=== PATIENT | female | born 1945 | race African-American/Black ===

== ENCOUNTER 2024-01-09 01:27 | Inpatient (IN) | payer OTHER ==
[2024-01-09] VITALS (73 sets, daily range): BP systolic 80–168; BP diastolic 44–81; PULSE 48–92; RESP 12–29; TEMP 97.8–99.3; O2SAT 94–100
[~2024-01-09] VITALS: Ht 167.6 cm; Wt 72.0 kg
[~2024-01-09 01:27] MED LIST: GABA-1308 PO; GLIP5TAB21 PO; ISOS1TAB29 PO; METO25TA93 PO; NOR10T PO; OMEP20CA74 PO
[2024-01-09] MEDS: NITROGLYCERIN 50MG/250ML 250 ML IV ONE ×2 (01:52→08:34)
[2024-01-09 02:06] LABS: Hemoglobin 14.9 g/dL (12.2-16.2); Mean Corpuscular Hemoglobin 31.2 pg (28.0-32.0); Mean Corpuscular Hgb Conc. 32.3 g/dL (32.0-36.0); Mean Corpuscular Volume 96.5 fL (80.0-100.0); Red Blood Cells 4.77 10^6/uL (4.0-5.20); Red Cell Distribution Width 13.4 % (11.8-14.3); White Blood Cell 15.5 10^3/uL (4.4-10.8)
[2024-01-09 02:07] LABS: Basophils % (manual) 0 (0.0-2.0); Blast Cells 0; Metamyelocytes % 0; Promyelocytes % 0
[2024-01-09 02:11] LABS: Chloride 103 mmol/L (98-107); Potassium 3.9 mmol/L (3.5-5.1); Sodium 140 mmol/L (136-145)
[2024-01-09 02:12] LABS: Anion Gap 14 (5-15); Carbon Dioxide 23 mmol/L (20-30)
[2024-01-09 02:12] LABS: Base Excess -7.4 mmol/L (-2.0-2.0)
[2024-01-09 02:13] LABS: Calcium 10.3 mg/dL (8.7-10.4)
[2024-01-09 02:17] LABS: BUN/Creatinine Ratio 13.8 (10.0-20.0); Blood Urea Nitrogen 26 mg/dL (9-23); Glucose 323 mg/dL (74-106)
[2024-01-09 02:52] LABS: Band Neutrophils % (manual) 2; Eosinophils % (manual) 1 (0-7); Lymphocytes % (manual) 53 (10.0-50.0); Monocytes % (manual) 5 (0-12); Myelocytes % 1; Reactive Lymphocytes 1
[2024-01-09 02:53] LABS: Platelet Estimate Adequate; RBC Morphology Normal
[2024-01-09] MEDS: FUROSEMIDE 100 MG/10ML VIAL IV ONE (03:40)
[2024-01-09] MEDS ORDERED: DEXTROSE (50%) 50ML SYRG IV PRN ×2 (05:00→12:45)
[2024-01-09] MEDS ORDERED: IPRATROPIUM BROM 0.5 MG/2.5ML INH SOL NEB PRN (05:00)
[2024-01-09] MEDS ORDERED: MORPHINE SULFATE INJ 2 MG/ml SYRG IV PRN (05:00)
[2024-01-09] MEDS ORDERED: HYDROcodone-ACET 5/325MG TAB PO PRN (05:00)
[2024-01-09] MEDS ORDERED: NITROGLYCERIN 0.4 MG SL TAB SL PRN (05:00)
[2024-01-09] MEDS ORDERED: ALBUTEROL SULF 2.5 MG/0.5ML(0.5%) NEB SOLN NEB PRN (05:00)
[2024-01-09] MEDS ORDERED: DOCUSATE SOD 100 MG CAP PO PRN (05:00)
[2024-01-09] MEDS: cefTRIAXone 1GM/50ML D5W 50 ML IV ONE (05:35)
[2024-01-09] MEDS: SODIUM CHLOR 0.9% PF (SALINE LOCK) 10ML VIAL/SYR IV SCH (05:46)
[2024-01-09 06:03] LABS: Urine Bacteria MANY /hpf (None Seen); Urine Blood TRACE /uL (Negative); Urine Clarity Turbid (Clear); Urine Color Colorless (Yellow); Urine Hyaline Cast FEW /lpf (0 - 2); Urine Protein, UAD 3+ (Negative); Urine Urobilinogen Normal (Negative); Urine WBC 34 /hpf (0 - 5); Urine pH 6.5 (5.0-9.0)
[2024-01-09] MEDS: HEPARIN IN NS 1000Units/500mL 1,500 ML ONE (06:47)
[2024-01-09] MEDS: IODIXANOL 320MG/ML 100ML BTL IV ONE ×2 (06:47→07:44)
[2024-01-09] MEDS: IOHEXOL 350 MG/ML 100ML IJ ONE (06:47)
[2024-01-09] MEDS: LIDOCAINE 2%HCL (LOCAL ANESTH.) INJ 20ML MDV ONE (06:47)
[2024-01-09] MEDS: HEPARIN SODIUM (PORCINE) 5000 UNITS/ML 1ML VIAL IV ONE (06:49)
[2024-01-09] MEDS: HEPARIN SODIUM (PORCINE) 5000 UNITS/ML 1ML VIAL ONE (06:58)
[2024-01-09] MEDS: ANGIOMAX 250 MG VIAL IV ONE (06:58)
[2024-01-09] MEDS: VERAPAMIL 2.5MG/ML INJ 2ML VIAL IV ONE (06:59)
[2024-01-09] MEDS: MIDAZOLAM HCL 2MG/2ML 2ml VIAL (1mg/ml) ONE (06:59)
[2024-01-09] MEDS: SODIUM CHL 0.9% 50 ML ONE (06:59)
[2024-01-09] MEDS: fentaNYL CITRATE 100 MCG/2 ML VL ONE (07:00)
[2024-01-09 07:23] LABS: INR 1.05 (0.9-1.15); Partial Thromboplastin Time 23.9 SEC (24.5-34.5); Prothrombin Time 11.1 sec (9.3-11.8)
[2024-01-09] MEDS: methylPREDNISolone SOD SUCC 125 MG/2 ML VL ONE (07:25)
[2024-01-09] MEDS: diphenhdrAMINE HCL 50 MG/1 ML VL ONE (07:26)
[2024-01-09] MEDS: FAMOTIDINE (10MG/ML) 2ML VL IV ONE (07:26)
[2024-01-09] MEDS: hydrALAZINE HCL 20 MG/ML VL ONE (07:36)
[2024-01-09] MEDS ORDERED: HEPARIN DRIP/D5W 100UNITS/ML 250 ML IV SCH (08:00)
[2024-01-09 09:08] LABS: Chloride 106 mmol/L (98-107); Potassium 5.2 mmol/L (3.5-5.1); Sodium 139 mmol/L (136-145)
[2024-01-09 09:14] LABS: Glucose 277 mg/dL (74-106)
[2024-01-09 09:15] LABS: Blood Urea Nitrogen 25 mg/dL (9-23); LDL Cholesterol 96 mg/dL (< 100); Magnesium 1.5 mg/dL (1.6-2.6); Triglycerides 188 mg/dL (< 150)
[2024-01-09 09:17] LABS: Cholesterol 183 mg/dL (< 200); HDL Cholesterol 49 mg/dL (40-59)
[2024-01-09] MEDS: DOBUTamine 1000MCG/ML 250 ML IV SCH (09:45)
[2024-01-09] MEDS ORDERED: FUROSEMIDE 40 MG/4 ML VIAL IV SCH (10:00)
[2024-01-09] MEDS: NITROGLYCERIN 50MG/250ML 250 ML IV SCH (10:00)
[2024-01-09] MEDS: ASPirin 81 mg TAB PO SCH (10:12)
[2024-01-09] MEDS: CLOPIDOGREL BISULFATE 75 MG TAB PO SCH (10:13)
[2024-01-09] MEDS: ACCU-CHEK COMFORT CURVE STRIP VI SCH ×2 (11:28→16:53)
[2024-01-09] MEDS: InsuLIN REG 1unit/0.01ml Soln (100units/ml) SC SCH ×3 (11:29→22:43)
[2024-01-09 13:10] LABS: Anion Gap 10 (5-15); Carbon Dioxide 23 mmol/L (20-30)
[2024-01-09] MEDS ORDERED: ATOR20TA50 PO (14:35)
[2024-01-09] MEDS ORDERED: SERT-206 PO (14:35)
[2024-01-09] MEDS ORDERED: CLOP75TA28 PO (14:35)
[2024-01-09] MEDS ORDERED: ASPI-543 PO (14:35)
[2024-01-09] MEDS ORDERED: PANT40TA2 PO (14:35)
[2024-01-09] MEDS: ONDANSETRON HCL 4 MG/2 ML VIAL IV PRN (15:16)
[2024-01-09] MEDS: PANTOPRAZOLE 40 MG/10 ML VIAL INJ IV SCH (16:09)
[2024-01-09] MEDS: FUROSEMIDE 20 MG/2 ML VIAL IV SCH (17:50)
[2024-01-09] MEDS: ATORVASTATIN 20 MG TAB PO SCH (22:36)
[2024-01-10] VITALS (68 sets, daily range): BP systolic 114–156; BP diastolic 45–76; PULSE 53–78; RESP 10–27; TEMP 97.6–99.3; O2SAT 87–100
[2024-01-10 04:05] LABS: Basophils # (auto) 0 10 ^3/uL (0-0.2); Basophils % (auto) 0.3 % (0.0-2.0); Eosinophils # (auto) 0 10 ^3/uL (0-0.8); Eosinophils % (auto) 0.1 % (0.0-7.0); Hematocrit 36.9 % (36.0-46.0); Hemoglobin 12.2 g/dL (12.2-16.2); Lymphocytes # (auto) 1.5 10 ^3/uL (0.4-5.4); Lymphocytes % (auto) 14.2 % (10.0-50.0); Mean Corpuscular Hgb Conc. 33.1 g/dL (32.0-36.0); Mean Corpuscular Volume 93.6 fL (80.0-100.0); Monocytes # (auto) 0.8 10 ^3/uL (0-1.3); Monocytes % (auto) 7.9 % (0.0-12.0); Neutrophils # (auto) 8.1 10 ^3/uL (1.6-8.6); Neutrophils % (auto) 77.5 % (37.0-80.0); Red Blood Cells 3.95 10^6/uL (4.0-5.20); Red Cell Distribution Width 13.1 % (11.8-14.3); White Blood Cell 10.5 10^3/uL (4.4-10.8)
[2024-01-10 04:31] LABS: Alanine Aminotransferase 22 U/L (7-40); Albumin 3.9 g/dL (3.2-4.8); Alkaline Phosphatase 97 U/L (46-116); Anion Gap 8 (5-15); Aspartate Aminotransferase 41 U/L (13-40); BUN/Creatinine Ratio 19.1 (10.0-20.0); Calcium 10.3 mg/dL (8.7-10.4); Carbon Dioxide 28 mmol/L (20-30); Chloride 105 mmol/L (98-107); Glucose 125 mg/dL (74-106); Magnesium 1.5 mg/dL (1.6-2.6); Potassium 4.5 mmol/L (3.5-5.1); Sodium 141 mmol/L (136-145)
[2024-01-10 04:32] LABS: Bilirubin, Total 0.5 mg/dL (0.2-1.0); Total Protein 7.3 g/dL (5.7-8.2)
[2024-01-10 04:35] LABS: Blood Urea Nitrogen 41 mg/dL (9-23)
[2024-01-10] MEDS: cefTRIAXone 1GM/50ML D5W 50 ML IV SCH (05:02)
[2024-01-10 06:12] LABS: Large Platelets FEW; Platelet Estimate Decreased
[2024-01-10] MEDS: ISOSORBIDE MONONITRATE ER 60 MG TAB PO ONE (12:41)
[2024-01-10] MEDS: METOPROLOL TARTRATE 25 MG TAB PO SCH (12:42)
[2024-01-10] MEDS: METOPROLOL TARTRATE 25 MG TAB PO ONE (12:43)
[2024-01-10] MEDS: MAGNESIUM OXIDE 400 MG TAB PO ONE (14:50)
[2024-01-10] MEDS ORDERED: MET25T PO (16:38)
[2024-01-10] MEDS ORDERED: FURO20TA3 PO (16:38)
[2024-01-10 19:55] LABS: Urine Bacteria None Seen /hpf (None Seen)
[2024-01-10 20:22] LABS: Urine Blood Negative /uL (Negative); Urine Clarity Clear (Clear); Urine Color Light-Yellow (Yellow); Urine Protein, UAD TRACE (Negative); Urine Specific Gravity 1.027 (1.001-1.035); Urine Urobilinogen Normal (Negative); Urine WBC 3 /hpf (0 - 5); Urine pH 5.5 (5.0-9.0)
[2024-01-10] MEDS: INSULIN LANTUS (GLARGINE) 1 /0.01ml (100units/ml) SC SCH (21:13)
[2024-01-11] VITALS (30 sets, daily range): BP systolic 120–183; BP diastolic 48–81; PULSE 50–94; RESP 10–22; TEMP 98.7–98.8; O2SAT 91–98
[2024-01-11] MEDS: ACETAMINOPHEN 325 MG TAB PO PRN (01:45)
[2024-01-11 03:56] LABS: Basophils # (auto) 0 10 ^3/uL (0-0.2); Basophils % (auto) 0.4 % (0.0-2.0); Eosinophils # (auto) 0.1 10 ^3/uL (0-0.8); Eosinophils % (auto) 1.5 % (0.0-7.0); Hematocrit 37.1 % (36.0-46.0); Hemoglobin 12.4 g/dL (12.2-16.2); Lymphocytes # (auto) 2.6 10 ^3/uL (0.4-5.4); Lymphocytes % (auto) 26.8 % (10.0-50.0); Mean Corpuscular Hemoglobin 31.6 pg (28.0-32.0); Mean Corpuscular Hgb Conc. 33.4 g/dL (32.0-36.0); Mean Corpuscular Volume 94.7 fL (80.0-100.0); Monocytes # (auto) 0.6 10 ^3/uL (0-1.3); Monocytes % (auto) 6.4 % (0.0-12.0); Neutrophils # (auto) 6.2 10 ^3/uL (1.6-8.6); Neutrophils % (auto) 64.9 % (37.0-80.0); Nucleated Red Blood Cells % 0.1 %; Red Blood Cells 3.91 10^6/uL (4.0-5.20); White Blood Cell 9.6 10^3/uL (4.4-10.8)
[2024-01-11 04:02] LABS: Chloride 105 mmol/L (98-107); Potassium 4.5 mmol/L (3.5-5.1); Sodium 140 mmol/L (136-145)
[2024-01-11 04:03] LABS: Anion Gap 6 (5-15); Calcium 9.9 mg/dL (8.7-10.4); Carbon Dioxide 29 mmol/L (20-30)
[2024-01-11 04:08] LABS: BUN/Creatinine Ratio 17.9 (10.0-20.0); Blood Urea Nitrogen 35 mg/dL (9-23); Glucose 138 mg/dL (74-106)
[2024-01-11] MEDS: hydrALAZINE HCL 20 MG/ML VL IV PRN (04:10)
[2024-01-11] MEDS ORDERED: LACTULOSE 20Gm/30ML SOLN PO ONE (10:00)
[2024-01-11] MEDS: MAGNESIUM OXIDE 400 MG TAB PO ONE (10:12)
[2024-01-11] MEDS: FUROSEMIDE 20 MG/2 ML VIAL IV SCH (10:13)
[2024-01-11] MEDS: PANTOPRAZOLE 40 MG TAB PO SCH (10:14)
[2024-01-11] MEDS: ISOSORBIDE MONONITRATE ER 60 MG TAB PO SCH (10:14)
[2024-01-11] MEDS: amLODIPine BESYLATE 5 MG TAB PO ONE (13:05)
[2024-01-12] VITALS: PULSE 75; RESP 13; O2SAT 96
[2024-01-12] MEDS ORDERED: amLODIPine BESYLATE 5 MG TAB PO SCH (10:00)
== END 2024-01-12 00:02 | disposition short-term general hospital (02) | DRG 280 ==
LOC: ER 01:27 → EDAGE 01:27 → OVERFLOW 05:25 → ICU WEST 09:30
PROVIDERS: ADMIT Nurse Practitioner Family; ATTEND Internal Medicine
PROC: 4A023N7 Measurement of Cardiac Sampling and Pressure, Left Heart, Percutaneous Approach (ICD-10-PCS; principal; 2024-01-09)
PROC: B211YZZ Fluoroscopy of Multiple Coronary Arteries using Other Contrast (ICD-10-PCS; 2024-01-09)
PROC: B215YZZ Fluoroscopy of Left Heart using Other Contrast (ICD-10-PCS; 2024-01-09)
PROC: B218YZZ Fluoroscopy of Left Internal Mammary Bypass Graft using Other Contrast (ICD-10-PCS; 2024-01-09)
PROC: B212YZZ Fluoroscopy of Single Coronary Artery Bypass Graft using Other Contrast (ICD-10-PCS; 2024-01-09)
PROC: 5A09357 Assistance with Respiratory Ventilation, Less than 24 Consecutive Hours, Continuous Positive Airway Pressure (ICD-10-PCS; 2024-01-09)
DX: I21.4 Non-ST elevation (NSTEMI) myocardial infarction (principal); I50.23 Acute on chronic systolic (congestive) heart failure; J96.01 Acute respiratory failure with hypoxia; N17.0 Acute kidney failure with tubular necrosis; I13.0 Hypertensive heart and chronic kidney disease with heart failure and stage 1 through stage 4 chronic kidney disease, or unspecified chronic kidney disease; N18.4 Chronic kidney disease, stage 4 (severe); I16.1 Hypertensive emergency; N39.0 Urinary tract infection, site not specified; R65.10 Systemic inflammatory response syndrome (SIRS) of non-infectious origin without acute organ dysfunction; I25.10 Atherosclerotic heart disease of native coronary artery without angina pectoris; I44.7 Left bundle-branch block, unspecified; J45.909 Unspecified asthma, uncomplicated; E11.22 Type 2 diabetes mellitus with diabetic chronic kidney disease; E11.65 Type 2 diabetes mellitus with hyperglycemia; F32.A Depression, unspecified; E78.5 Hyperlipidemia, unspecified; E11.40 Type 2 diabetes mellitus with diabetic neuropathy, unspecified; E83.42 Hypomagnesemia; Z95.1 Presence of aortocoronary bypass graft; Z95.5 Presence of coronary angioplasty implant and graft; Z82.49 Family history of ischemic heart disease and other diseases of the circulatory system; Z91.041 Radiographic dye allergy status; Z83.3 Family history of diabetes mellitus
CPT/HCPCS: 36415; 36600; 71045; 80048; 80053; 80061; 81001; 82805; 82962; 83036; 83735; 83880; 84443; 84484; 85007; 85025; 85027; 85610; 85730; 87040; 87081; 87086; 93005; 93306; 93459; 94660; 97110; 97116; 97163; 97530; 99291; C9113; G0378; J2250; J2405; J3490; Q9967